=== PATIENT | female | born 1945 | race Caucasian/White ===

== ENCOUNTER 2016-11-15 16:32 | Emergency (ER) | payer OTHER, MEDICARE ==
--- NOTE | 2016-11-15 18:00 | ED ORDER SUMMARY ---
..... Patient: OLIVIA MCLEAN OrderSheet [facility] VisitID: [id number] [place] [address] 71y, F Registration Date/Time: 11/15/2016 ORDER SHEET Weight: 66.6 kg (stated) Allergies: No Known Drug Allergy GENERAL ORDERS: Knee 4V Bilat Urgent (16:50 11/15/2016 [facility]) (Ack 16:57 RKaruga) (17:01 EHassan R.N.) Vladimir Wrap (bilateral knees) (17:10 11/15/2016 [facility]) (17:43 EHassan R.N.) MEDICATION ORDERS: Ibuprofen PO 800 mg (NOW) (17:49 11/15/2016 [facility]) (18:14 EHassan R.N.) Zofran ODT PO 4 mg (NOW) (17:50 11/15/2016 [facility]) (Cancelled: Patient Ytnmgbf06:14 EHassan R.N.) IV FLUIDS: ORDER SHEET NOTES: [Electronically signed by Haydee Shin R.N. (18:46 11/15/2016)] [Electronically signed by Valdez Ennis DO (14:32 11/16/2016)] [Electronically locked/signed by Haydee Shin R.N. (18:46 11/15/2016)]
--- NOTE | 2016-11-15 18:00 | ED ORDER SUMMARY ---
..... Patient: OLIVIA MCLEAN OrderSheet [facility] VisitID: [id number] [place] [address] 71y, F Registration Date/Time: 11/15/2016 ORDER SHEET Weight: 66.6 kg (stated) Allergies: No Known Drug Allergy GENERAL ORDERS: Knee 4V Bilat Urgent (16:50 11/15/2016 [facility]) (Ack 16:57 RKaruga) (17:01 EHassan R.N.) Vladimir Wrap (bilateral knees) (17:10 11/15/2016 [facility]) (17:43 EHassan R.N.) MEDICATION ORDERS: Ibuprofen PO 800 mg (NOW) (17:49 11/15/2016 [facility]) (18:14 EHassan R.N.) Zofran ODT PO 4 mg (NOW) (17:50 11/15/2016 [facility]) (Cancelled: Patient Qkmqowy81:14 EHassan R.N.) IV FLUIDS: ORDER SHEET NOTES: [Electronically signed by Haydee Shin R.N. (18:46 11/15/2016)] [Electronically signed by Valdez Ennis DO (14:32 11/16/2016)] [Electronically locked/signed by Haydee Shin R.N. (18:46 11/15/2016)]
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
--- NOTE | 2016-11-16 14:32 | ED DISCHARGE INSTRUCTIONS ---
Patient: OLIVIA MCLEAN General Instructions [facility] VisitID: [id number] [place] [address] 71y, F Registration Date/Time: 11/15/2016 Multiple contusions to the right knee and left knee. Crush injury to the right knee, left knee and left lower leg. INSTRUCTIONS Apply ice. Wear elastic wrap (Vladimir wrap) as directed as needed. Elevate affected areas above chest level. You may walk and bear weight as tolerated. (Please watch for and return to the Emergency Department and / or your primary care provider for increasing pain, swelling or numbness and tingling in your lower extremities.). Warnings: Further evaluation is necessary in order to assess the possibility of serious illness. It is very important to follow up with a physician. GENERAL WARNINGS: Return or contact your physician immediately if your condition worsens or changes unexpectedly, if not improving as expected, or if other problems arise. Your Current Medications: CONTINUE TAKING THE FOLLOWING MEDICATIONS: Multivital Oral. OTC Medications: Acetaminophen (available over the counter): take according to label instructions. Motrin (available over the counter): take according to label instructions. Follow-up: Follow up with your doctor in about two days. ADDITIONAL INFORMATION Contusion:Lower Extremity You have a CONTUSION of your LOWER extremity (leg, knee, ankle, foot, or toes). This causes local pain, swelling and sometimes bruising. There are no broken bones. This injury may take from a few days to a few weeks to heal. Home Care: 1) Keep your leg elevated to reduce pain and swelling. When sleeping, place a pillow under the injured leg. When sitting, support the injured leg so it is level with your waist. This is very important during the first 48 hours. 2) If CRUTCHES have been advised, do not bear full weight on the injured leg until you can do so without pain. You may return to sports when you are able to hop and run on the injured leg without pain. 3) Apply an ice pack (ice cubes in a plastic bag, wrapped in a towel) over the injured area for 20 minutes every 1-2 hours the first day for pain relief. Continue this 3-4 times a day until the pain and swelling goes away. 4) You may use acetaminophen (Tylenol) or ibuprofen (Motrin, Advil) to control pain, unless another pain medicine was prescribed. [ NOTE : If you have chronic liver or kidney disease or ever had a stomach ulcer or GI bleeding, talk with your doctor before using these medicines.] Follow Up with your doctor or this facility if you are not starting to improve within the next THREE days. [NOTE: If X-rays were taken, they will be reviewed by a radiologist. You will be notified of any new findings that may affect your care.] Get Prompt Medical Attention if any of the following occur: -- Pain or swelling increases -- Toes become cold, blue, numb or tingly -- Redness, warmth or drainage from the skin Vladimir Wrap An "Vladimir Bandage" refers to any elastic bandage wrap (2-6" wide). This is used to apply support and compression to an arm or leg. It will help prevent or reduce swelling also. When applying the bandage, it should not be stretched too tightly. A tight Vladimir Wrap will reduce circulation and cause tingling or numbness in the hand or foot. It may increase the pain under the bandage. If you get these symptoms, remove the wrap and rest the limb. Symptoms should go away within 1-2 hours. Once symptoms go away, reapply the bandage with less stretch. If symptoms do not go away after 1-2 hours with the bandage off, call your doctor or return to this facility promptly. Acetaminophen Oral tablet What is this medicine? ACETAMINOPHEN (a set a EBONY brianna fen) is a pain reliever. It is used to treat mild pain and fever. How should I use this medicine? Take this medicine by mouth with a glass of water. Follow the directions on the package or prescription label. Take your medicine at regular intervals. Do not take your medicine more often than directed. Talk to your bag worker regarding the use of this medicine in children. While this drug may be prescribed for children as young as 6 years of age for selected conditions, precautions do apply. What side effects may I notice from receiving this medicine? Side effects that you should report to your doctor or health menagerie caretaker as soon as possible: allergic reactions like skin rash, itching or hives, swelling of the face, lips, or tongue breathing problems fever or sore throat redness, blistering, peeling or loosening of the skin, including inside the mouth trouble passing urine or change in the amount of urine unusual bleeding or bruising unusually weak or tired yellowing of the eyes or skin Side effects that usually do not require medical attention (report to your doctor or health menagerie caretaker if they continue or are bothersome): headache nausea, stomach upset What may interact with this medicine? alcohol imatinib isoniazid other medicines with acetaminophen What if I miss a dose? If you miss a dose, take it as soon as you can. If it is almost time for your next dose, take only that dose. Do not take double or extra doses. Where should I keep my medicine? Keep out of reach of children. Store at room temperature between 20 and 25 degrees C (68 and 77 degrees F). Protect from moisture and heat. Throw away any unused medicine after the expiration date. What should I tell my health care provider before I take this medicine? They need to know if you have any of these conditions: if you frequently drink alcohol containing drinks liver disease an unusual or allergic reaction to acetaminophen, other medicines, foods, dyes or preservatives or trying to get breast-feeding What should I watch for while using this medicine? Tell your doctor or health menagerie caretaker if the pain lasts more than 10 days (5 days for children), if it gets worse, or if there is a new or different kind of pain. Also, check with your doctor if a fever lasts for more than 3 days. Do not take other medicines that contain acetaminophen with this medicine. Always read labels carefully. If you have questions, ask your doctor or pharmacist. If you take too much acetaminophen get medical help right away. Too much acetaminophen can be very dangerous and cause liver damage. Even if you do not have symptoms, it is important to get help right away. Ibuprofen Oral tablet What is this medicine? IBUPROFEN (eye BYOO proe fen) is a non-steroidal anti-inflammatory drug (NSAID). It is used for dental pain, fever, headaches or migraines, osteoarthritis, rheumatoid arthritis, or painful monthly periods. It can also relieve minor aches and pains caused by a cold, flu, or sore throat. How should I use this medicine? Take this medicine by mouth with a glass of water. Follow the directions on the prescription label. Take this medicine with food if your stomach gets upset. Try to not lie down for at least 10 minutes after you take the medicine. Take your medicine at regular intervals. Do not take your medicine more often than directed. A special MedGuide will be given to you by the pharmacist with each prescription and refill. Be sure to read this information carefully each time. Talk to your bag worker regarding the use of this medicine in children. Special care may be needed. What side effects may I notice from receiving this medicine? Side effects that you should report to your doctor or health menagerie caretaker as soon as possible: allergic reactions like skin rash, itching or hives, swelling of the face, lips, or tongue black or bloody stools, blood in the urine or in vomit breathing problems changes in vision chest pain general ill feeling or flu-like symptoms nausea or vomiting redness, blistering, peeling or loosening of the skin, including inside the mouth slurred speech or weakness on one side of the body stomach pain unexplained weight gain or swelling unusually weak or tired yellowing of eyes or skin Side effects that usually do not require medical attention (report to your doctor or health menagerie caretaker if they continue or are bothersome): constipation or diarrhea dizziness gas or heartburn stomach upset What may interact with this medicine? Do not take this medicine with any of the following medications: cidofovir ketorolac methotrexate pemetrexed This medicine may also interact with the following medications: alcohol aspirin diuretics lithium other drugs for inflammation like prednisone warfarin What if I miss a dose? If you miss a dose, take it as soon as you can. If it is almost time for your next dose, take only that dose. Do not take double or extra doses. Where should I keep my medicine? Keep out of the reach of children. Store at room temperature between 15 and 30 degrees C (59 and 86 degrees F). Keep container tightly closed. Throw away any unused medicine after the expiration date. What should I tell my health care provider before I take this medicine? They need to know if you have any of these conditions: asthma cigarette smoker drink more than 3 alcohol containing drinks a day heart disease or circulation problems such as heart failure or leg edema (fluid retention) high blood pressure kidney disease liver disease stomach bleeding or ulcers an unusual or allergic reaction to ibuprofen, aspirin, other NSAIDS, other medicines, foods, dyes, or preservatives or trying to get breast-feeding What should I watch for while using this medicine? Tell your doctor or healthcare professional if your symptoms do not start to get better or if they get worse. This medicine does not prevent heart attack or stroke. In fact, this medicine may increase the chance of a heart attack or stroke. The chance may increase with longer use of this medicine and in people who have heart disease. If you take aspirin to prevent heart attack or stroke, talk with your doctor or health menagerie caretaker. Do not take other medicines that contain aspirin, ibuprofen, or naproxen with this medicine. Side effects such as stomach upset, nausea, or ulcers may be more likely to occur. Many medicines available without a prescription should not be taken with this medicine. This medicine can cause ulcers and bleeding in the stomach and intestines at any time during treatment. Ulcers and bleeding can happen without warning symptoms and can cause . To reduce your risk, do not smoke cigarettes or drink alcohol while you are taking this medicine. You may get drowsy or dizzy. Do not drive, use machinery, or do anything that needs mental alertness until you know how this medicine affects you. Do not stand or sit up quickly, especially if you are an older patient. This reduces the risk of dizzy or fainting spells. This medicine can cause you to bleed more easily. Try to avoid damage to your teeth and gums when you brush or floss your teeth. You have been given the following additional information: Contusion, Lower Extremity Vladimir Wrap Acetaminophen Oral tablet Ibuprofen Oral tablet You may walk and bear weight as tolerated. (Electronically signed by Valdez Ennis DO 11/16/2016 14:32)
--- NOTE | 2016-11-16 14:32 | ED MAR SUMMARY ---
..... Medication Administration Record [facility] [address] [place] [address] Patient: OLIVIA MCLEAN Visit ID: [id number] 71y, F Weight: 66.6 kg Height/Length: 65 in BMI: 24.5 ALLERGIES: No Known Drug Allergy Given 18:14 11/15/2016 Haydee Shin R.N. Medication Administered: IBUPROFEN [PO], Dose: 800 mg Tablets PO. Medication Ordered: Ibuprofen PO 800 mg (NOW).
--- NOTE | 2016-11-16 14:32 | ED MAR SUMMARY ---
..... Medication Administration Record [facility] [address] [place] [address] Patient: OLIVIA MCLEAN Visit ID: [id number] 71y, F Weight: 66.6 kg Height/Length: 65 in BMI: 24.5 ALLERGIES: No Known Drug Allergy Given 18:14 11/15/2016 Haydee Shin R.N. Medication Administered: IBUPROFEN [PO], Dose: 800 mg Tablets PO. Medication Ordered: Ibuprofen PO 800 mg (NOW).
--- NOTE | 2016-11-16 14:32 | ED MED RECONCILIATION SUMMARY ---
Patient: OLIVIA MCLEAN Medication Reconciliation Report [facility] VisitID: [id number] [address] [place] [address] 71y, F Registration Date/Time: 11/15/2016 Weight: 66.6 kg Height/Length: 65 in. BMI: 24.5 ALLERGIES: No Known Drug Allergy The patient's Home Medications are listed below: CONTINUE TAKING THE FOLLOWING MEDICATIONS: Multivital Oral The source(s) of the original Home Medication information: patient The following Medications were given to the patient in the Emergency Department: Ibuprofen [PO] PO 800 mg, administered: 11/15/2016 6:14:00 PM The following Medications were prescribed to the patient: Acetaminophen (available over the counter): take according to label instructions. -- Valdez Ennis DO Motrin (available over the counter): take according to label instructions. -- Valdez Ennis DO
--- NOTE | 2016-11-16 14:32 | ED MED RECONCILIATION SUMMARY ---
Patient: OLIVIA MCLEAN Medication Reconciliation Report [facility] VisitID: [id number] [address] [place] [address] 71y, F Registration Date/Time: 11/15/2016 Weight: 66.6 kg Height/Length: 65 in. BMI: 24.5 ALLERGIES: No Known Drug Allergy The patient's Home Medications are listed below: CONTINUE TAKING THE FOLLOWING MEDICATIONS: Multivital Oral The source(s) of the original Home Medication information: patient The following Medications were given to the patient in the Emergency Department: Ibuprofen [PO] PO 800 mg, administered: 11/15/2016 6:14:00 PM The following Medications were prescribed to the patient: Acetaminophen (available over the counter): take according to label instructions. -- Valdez Ennis DO Motrin (available over the counter): take according to label instructions. -- Valdez Ennis DO
== END 2016-11-15 18:34 | disposition home or self-care (01) ==
LOC: ED SRH 16:32
DX: S87.02XA Crushing injury of left knee, initial encounter (principal); S87.01XA Crushing injury of right knee, initial encounter; S80.02XA Contusion of left knee, initial encounter; S80.01XA Contusion of right knee, initial encounter; V03.00XA Pedestrian on foot injured in collision with car, pick-up truck or van in nontraffic accident, initial encounter; Y93.9 Activity, unspecified; Y92.524 Gas station as the place of occurrence of the external cause; Y99.9 Unspecified external cause status